=== PATIENT | female | born 1945 | race Caucasian/White ===

== ENCOUNTER 2019-01-13 09:57 | Inpatient (IN) | payer OTHER, MEDICARE ==
[~2019-01-13] VITALS: Ht 167.6 cm; Wt 78.5 kg
[2019-01-13 10:09] VITALS: BP 118/59
[2019-01-13 10:25] LABS: HEMOGLOBIN 13.2 gm/dL (12.0-15.0); MCHC 34.7 g/dL (28.0-37.0); MCV 92.3 fL (80.0-100.0); RBC 4.12 mil/uL (4.20-5.00); RDW 13.2 % (10.5-14.5); WBC 9.2 thou/uL (4.0-11.0)
[2019-01-13 10:31] LABS: ANION GAP 7 mmol/L (7-16); BUN 12 mg/dL (7-18); CALCIUM 9.2 mg/dL (8.5-10.1); CHLORIDE 101 mmol/L (98-107); CO2 28 mmol/L (21-32); GLUCOSE 115 mg/dL (74-106); POTASSIUM 3.3 mmol/L (3.5-5.1); SODIUM 136 mmol/L (136-145)
[2019-01-13 10:35] LABS: INR 1.1; PROTIME 11.7 Seconds (9.3-11.4)
[2019-01-13 10:40] LABS: ALBUMIN 3.6 g/dL (3.4-5.0); SGOT 14 U/L (15-37); SGPT 14 U/L (30-65); TOTAL BILIRUBIN 1.5 mg/dL (<0.1-1.0); TOTAL PROTEIN 7.2 g/dL (6.4-8.2); TROPONIN-I <0.06 ng/mL (<0.06)
[2019-01-13 12:49] LABS: URINE BILIRUBIN NEGATIVE (Negative); URINE BLOOD TRACE (Negative); URINE CLARITY CLEAR; URINE COLOR YELLOW; URINE GLUCOSE-RANDOM* NEGATIVE (Negative); URINE KETONES NEGATIVE (Negative); URINE NITRITE-REFLEX NEGATIVE (Negative); URINE PROTEIN (DIPSTICK) NEGATIVE (Negative); URINE SPECIFIC GRAVITY <= 1.005 (1.005-1.035); URINE UROBILINOGEN 0.2 E.U./dl (0.2-1.0)
[2019-01-13 12:50] LABS: URINE LEUKOCYTES-REFLEX 1+ (Negative)
[2019-01-13 13:02] LABS: BACTERIA-REFLEX 1-9 Few /HPF (None Seen); CASTS None Seen /LPF (None Seen); SQUAMOUS 0-3 Few /LPF (0-3); URINE RBC None Seen /HPF (0-2); URINE WBC-REFLEX 0-5 Rare /HPF (0-5)
[2019-01-13 13:03] LABS: CRYSTALS None Seen /LPF (None Seen)
[2019-01-13 13:07] VITALS: BP 114/67
[2019-01-13] MEDS ORDERED: OCUVITE TABLET1 EAC1 PO (13:18)
[2019-01-13] MEDS ORDERED: VITAMIN D PO (13:18)
[2019-01-13 14:14] VITALS: BP 112/57
[2019-01-13 14:17] VITALS: BP 126/72
[2019-01-13 15:06] LABS: CALCIUM 8.9 mg/dL (8.5-10.1); CREATININE 0.8 mg/dL (0.6-1.0); POTASSIUM 3.5 mmol/L (3.5-5.1)
--- NOTE | 2019-01-13 15:45 | 2DMMODE ---
[facility] [address] [place] [address] 2 D/M-MODE ECHOCARDIOGRAM Name: ARLET HASSAN Room #: 203-P ADM IN .R.#: [id number] Admission: 01/13/19 Attend Phys: Tatiana Betancur Discharge: Date of : 43 Date of Service: 01/13/19 1545 Report #: [id number] THIS REPORT FOR: //name// APPROVED REPORT Study performed: 01/13/2019 15:01:07 EXAM: Comprehensive 2D, Doppler, and color-flow Echocardiogram Patient Location: Echo lab Room #: 203 Status: routine BSA: 1.88 HR: 102 bpm BP: 126/72 mmHg Rhythm: Atrial Fibrillation Other Information Study Quality: Adequate Indications Atrial Fibrillation 2D Dimensions RVDd: 27.55 mm IVSd: 12.43 (7-11mm) LVOT Diam: 21.16 (18-24mm) LVDd: 42.77 mm PWd: 9.66 (7-11mm) Ascending Ao: 32.33 (22-36mm) LVDs: 28.31 (25-40mm) Aortic Root: 35.07 mm Volumes Left Atrial Volume (Systole) Single Plane 4CH: 58.51 mL Single Plane 2CH: 66.94 mL LA ESV Index: 36.00 mL/m2 Aortic Valve AoV Peak Herson.: 1.22 m/s AO Peak Gr.: 5.99 mmHg LVOT Max P.97 mmHg LVOT Max V: 0.98 m/s BEN Vmax: 2.85 cm2 Mitral Valve MV Decel. Time: 132.39 ms MV E Max Herson.: 0.95 m/s [facility] [address] [place] [address] 2 D/M-MODE ECHOCARDIOGRAM Name: ARLET HASSAN Room #: 203-P [facility] IN [facility]#: [id number] Admission: 01/13/19 Attend Phys: Tatiana Betancur Discharge: Date of : 43 Date of Service: 01/13/19 1545 Report #: [id number] Pulmonary Valve PV Peak Herson.: 0.79 m/s PV Peak Gr.: 2.50 mmHg Tricuspid Valve TR Peak Herson.: 2.38 m/s RAP Estimate: 10.00 mmHg TR Peak Gr.: 23.17 mmHg PA Pressure: 33.00 mmHg Left Ventricle The left ventricle is normal size. There is normal LV segmental wall motion. Mild basal septal hypertrophy is present. Left ventricular systolic function is normal. LVEF is 55-60%. This study is not technically sufficient to allow evaluation of the LV diastolic function due to atrial fibrillation. Right Ventricle The right ventricle is normal size. The right ventricular systolic function is normal. Atria Left atrium is mildly dilated. The right atrium size is normal. Aortic Valve The aortic valve is normal in structure. No aortic regurgitation is present. There is no aortic valvular stenosis. Mitral Valve Mild mitral annular calcification. Mild to moderate mitral regurgitation. No evidence of mitral valve stenosis. Tricuspid Valve The tricuspid valve is normal in structure. Moderate tricuspid regurgitation. Estimated PAP is 35mmHg. Pulmonic Valve Pulmonic valve is not well visualized. Trace pulmonic regurgitation. Great Vessels The aortic root is normal in size. The ascending aorta is normal in size. IVC is dilated and collapses <50% with inspiration. Pericardium There is no pericardial effusion. [facility] [place] [address] 2 D/M-MODE ECHOCARDIOGRAM Name: ARLET HASSAN Room #: 203-P ADM IN M.R.#: [id number] Admission: 01/13/19 Attend Phys: Tatiana Betancur Discharge: Date of : 43 Date of Service: 01/13/19 1545 Report #: [id number] <Conclusion> Left ventricular systolic function is normal. There is normal LV segmental wall motion. LVEF is 55-60%. Left atrium is mildly dilated. The aortic valve is normal in structure. No aortic regurgitation or stenosis Mild mitral annular calcification. Mild mitral regurgitation. Moderate tricuspid regurgitation. Estimated pulmonary artery pressure of 35mmHg. There is no pericardial effusion. <ELECTRONICALLY SIGNED> By: Eleuterio Padilla MD, [facility] 01/13/19 1545 1545 1545 Eleuterio Padilla MD, FAC /INF
--- NOTE | 2019-01-13 17:14 | EKG ---
[address] [address] ELECTROCARDIOGRAM REPORT Name: ARLET HASSAN Room #: 203-P ADM IN M.R.#: [id number] Admission: 01/13/19 Attend Phys: Tatiana Betancur MD Discharge: Date of : 43 Report #: [id number] THIS REPORT FOR: //name// [facility] ED Test Date: 2019-01-13 Test Time: 10:06:30 Pat Name: ARLET HASSAN Department: Room: 203 Gender: F Sales Host: Lorene FAJARDO : 1945 Requested By: Gabby Brennan Order Number: [id number] MD: Sang Patel Measurements Intervals [facility] Rate: 152 P: MD: QRS: 40 QRSD: 98 T: 26 QT: 305 QTc: 485 Interpretive Statements Atrial fibrillation with rapid V-rate Abnormal R-wave progression, early transition Compared to ECG 08/08/2004 03:02:14 Sinus rhythm no longer present Incomplete right bundle-branch block no longer present Electronically Signed On 01-13-2019 17:14:31 CLUB ATTENDANT by Sang Patel [email or web address] <ELECTRONICALLY SIGNED> By: Sang Patel MD 01/13/19 1714 1006 1006 Sang Patel MD /EPI
--- NOTE | 2019-01-13 19:49 | NUR ---
VSS-AFEBRILE. LUNGS CLEAR-ROOM AIR. C/O SHOOTING CHEST DISCOMFORT ON LEFT SIDE OF CHEST. DECLINES NEED FOR PAIN MEDICATION. VERY MILD SOA WITH EXERTION. REMAINS IN AFIB WITH A CONTROLLED RATE. LEFT FOOT WOUNDS CLEANSED WITH BETADINE AND COVERED WITH OPTIFOAM. FALL AGREEMENT AND MEDICARE FORM SIGNED. CALLS APPROPRIATELY FOR STANDBY ASSIST TO USE RESTROOM.
[2019-01-13 20:43] VITALS: BP 109/55
[2019-01-14 00:43] VITALS: BP 116/55
[2019-01-14 04:02] LABS: CALCIUM 8.9 mg/dL (8.5-10.1); CREATININE 1.1 mg/dL (0.6-1.0); POTASSIUM 3.9 mmol/L (3.5-5.1)
[2019-01-14 04:15] VITALS: BP 103/53
--- NOTE | 2019-01-14 05:17 | NUR ---
ASSUMED PT CARE AT 1900 WITH BEDSIDE REPORT COMPLETED AND FAMILY AT BEDSIDE. PT IS ALERT AND ORIENTED WITH NO SIGN OF DISTRESS NOTED. SCHEDULED MEDS ADMINISTERED TO PT. PT WAS ADMITTED WITH AFIB RVR AND PLACED ON CARDIZIEM DRIP. PT IS CONVERTED BACK TO NORMAL SINUS RYMTHM. PT IS STABLE. NO SIGN OD DISTRESS NOTED. PT IS TAKEN TO CT SCAN FOR A CTA. PT IS STABLE THROUGH OUT THE NIGHT, VITAL SIGNS STABLE, DENIES ANY CHEST PAIN. PT CONTINUES TO BE NORMAL SINUS RYMTHM THROUGH OUT THE NIGHT. DENIES ANY FURTHER NEEDS AT THIS TIME.
[2019-01-14 08:30] VITALS: BP 124/52
--- NOTE | 2019-01-14 09:39 | EKG ---
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 : 1945 Requested By: Eleuterio Padilla Order Number: [id number] MD: Eleuterio Padilla Measurements Intervals [place] Rate: 69 P: 6 [place]: 135 QRS: 23 QRSD: 105 T: 51 QT: 429 QTc: 460 Interpretive Statements Sinus rhythm Normal tracing Compared to ECG 01/13/2019 10:06:30 Sinus rhythm has replaced atrial fibrillation Electronically Signed On 01-14-2019 9:39:30 [employer] by Eleuterio Padilla [email or web address] <ELECTRONICALLY SIGNED> By: Eleuterio Padilla MD, [facility] 01/14/19 0939 D: 02/700 0 Eleuterio Padilla MD, FACC /EPI
[2019-01-14 11:40] VITALS: BP 122/64
--- NOTE | 2019-01-14 12:11 | NUR ---
Met with patient and spouse at bedside. Patient and spouse reside in independent mutli level home but all needs on one level. Patient with no assistive device and cont to drive. 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 Discussed possible coumadin and lab draws and patient plans outpatient management. She reports she was going to [facility] but she did not see her PCP often as she was not ill. She graduated into medicare and their policy they take no new mediare patients. They encouraged her to call Dr Barclay out of [facility]. Spouse reports they plan to follow with Dr Barclay but no established at this time. [facility]
[2019-01-14] MEDS ORDERED: COUMADIN 5 MG TA5 M1 PO (12:18)
[2019-01-14] MEDS ORDERED: CARDIZEM CD240 MG PO (12:20)
[2019-01-14 13:26] VITALS: BP 122/64
--- NOTE | 2019-01-14 15:15 | NUR ---
WOUND CONSULT: PT. WAS SEEN TODAY BY DR. CAMPOS AND MYSELF. PT. HAS CHRONIC VENOUS STATIS ULCERS TO HER LEFT LATERAL ANKLE. THERE ARE NO NOTED SIGNS OR SYMPTOMS OF INFECTION AT THIS TIME. SINCE PT. WILL BE DISCHARGING TODAY PT. WAS INSTRUCTED ON WOUND CARE AND WILL FOLLOW UP IN THE WOUND CLINIC ON A OUTPATIENT BASIS. RECOMMENDATIONS: [employer], BORDERED FOAM, M/W/F AND PRN PT. AND STAFF NURSE WERE INSTRUCTED ON PLAN OF CARE.
== END 2019-01-14 13:54 | disposition home or self-care (01) | DRG 592 ==
LOC: ER 09:57 → 2N 12:42 → EROBS 12:42 → 2N 14:02 → ENTRNSPT 01-14 13:39 → EDTRNSPTSTS 01-14 13:40 → 2N 01-14 13:54
PROVIDERS: Internal Medicine; Physician Assistant; ADMIT Internal Medicine
DX: L97.529 Non-pressure chronic ulcer of other part of left foot with unspecified severity (principal); I50.31 Acute diastolic (congestive) heart failure; L03.90 Cellulitis, unspecified; J98.11 Atelectasis; D68.59 Other primary thrombophilia; I48.91 Unspecified atrial fibrillation; H35.30 Unspecified macular degeneration; Z82.49 Family history of ischemic heart disease and other diseases of the circulatory system; Z90.89 Acquired absence of other organs
CPT/HCPCS: 10081

== ENCOUNTER → 2019-01-26 | Outpatient (CLI) | payer OTHER, MEDICARE ==
[~2019-01-26] MED LIST: CARDIZEM CD240 MG PO; COUMADIN 5 MG TA5 M1 PO; OCUVITE TABLET1 EAC1 PO; VITAMIN D PO
== END ==
LOC: HYPER 06:50
DX: L97.322 Non-pressure chronic ulcer of left ankle with fat layer exposed (principal); I87.2 Venous insufficiency (chronic) (peripheral); I48.1 Persistent atrial fibrillation; Z79.01 Long term (current) use of anticoagulants; Z98.49 Cataract extraction status, unspecified eye

== ENCOUNTER → 2019-02-09 | Outpatient (CLI) | payer OTHER, MEDICARE | LOC: HYPER 06:45 | DX: L97.322 Non-pressure chronic ulcer of left ankle with fat layer exposed (principal); L84 Corns and callosities; I87.2 Venous insufficiency (chronic) (peripheral); I48.1 Persistent atrial fibrillation; Z79.01 Long term (current) use of anticoagulants ==

== ENCOUNTER → 2019-03-04 | Outpatient (CLI) | payer OTHER, MEDICARE | LOC: HYPER 06:47 | DX: L97.322 Non-pressure chronic ulcer of left ankle with fat layer exposed (principal); S00.32XA Blister (nonthermal) of nose, initial encounter; S80.12XA Contusion of left lower leg, initial encounter; I87.2 Venous insufficiency (chronic) (peripheral); I48.1 Persistent atrial fibrillation; Z79.01 Long term (current) use of anticoagulants; X58.XXXA Exposure to other specified factors, initial encounter; Y93.89 Activity, other specified; Y92.89 Other specified places as the place of occurrence of the external cause; Y99.8 Other external cause status ==

== ENCOUNTER → 2019-03-18 | Outpatient (CLI) | payer OTHER, MEDICARE | LOC: HYPER 06:58 | DX: L97.322 Non-pressure chronic ulcer of left ankle with fat layer exposed (principal); S00.3 Superficial injury of nose; S80.12XD Contusion of left lower leg, subsequent encounter; I87.2 Venous insufficiency (chronic) (peripheral); I48.1 Persistent atrial fibrillation; Z79.01 Long term (current) use of anticoagulants; X58.XXXD Exposure to other specified factors, subsequent encounter ==

== ENCOUNTER → 2019-04-02 | Outpatient (CLI) | payer OTHER, MEDICARE | LOC: HYPER 06:57 | DX: L97.322 Non-pressure chronic ulcer of left ankle with fat layer exposed (principal); I87.2 Venous insufficiency (chronic) (peripheral); I48.1 Persistent atrial fibrillation; Z79.01 Long term (current) use of anticoagulants ==

== ENCOUNTER → 2019-04-20 | Outpatient (CLI) | payer OTHER, MEDICARE | LOC: HYPER 06:35 | DX: L97.322 Non-pressure chronic ulcer of left ankle with fat layer exposed (principal); S00.3 Superficial injury of nose; I87.2 Venous insufficiency (chronic) (peripheral); L84 Corns and callosities; I48.1 Persistent atrial fibrillation; Z79.01 Long term (current) use of anticoagulants; X58.XXXD Exposure to other specified factors, subsequent encounter ==

== ENCOUNTER → 2019-04-29 | Outpatient (CLI) | payer OTHER, MEDICARE | LOC: HYPER 06:34 | DX: L97.322 Non-pressure chronic ulcer of left ankle with fat layer exposed (principal); L84 Corns and callosities; I87.2 Venous insufficiency (chronic) (peripheral); I48.1 Persistent atrial fibrillation; Z79.01 Long term (current) use of anticoagulants ==

== ENCOUNTER → 2019-05-18 | Outpatient (CLI) | payer OTHER, MEDICARE | LOC: HYPER 07:05 | DX: L97.322 Non-pressure chronic ulcer of left ankle with fat layer exposed (principal); S00.3 Superficial injury of nose; S80.12XD Contusion of left lower leg, subsequent encounter; I87.2 Venous insufficiency (chronic) (peripheral); I48.1 Persistent atrial fibrillation; L84 Corns and callosities; Z79.01 Long term (current) use of anticoagulants; X58.XXXD Exposure to other specified factors, subsequent encounter ==

== ENCOUNTER → 2019-06-29 | Outpatient (CLI) | payer OTHER, MEDICARE | LOC: HYPER 07:06 | DX: L97.322 Non-pressure chronic ulcer of left ankle with fat layer exposed (principal); S00.3 Superficial injury of nose; I48.1 Persistent atrial fibrillation; I87.2 Venous insufficiency (chronic) (peripheral); L84 Corns and callosities; I48.91 Unspecified atrial fibrillation; Z79.01 Long term (current) use of anticoagulants; X58.XXXD Exposure to other specified factors, subsequent encounter ==

== ENCOUNTER → 2019-07-13 | Outpatient (CLI) | payer OTHER, MEDICARE | LOC: HYPER 06:53 | DX: L97.322 Non-pressure chronic ulcer of left ankle with fat layer exposed (principal); S00.3 Superficial injury of nose; I87.2 Venous insufficiency (chronic) (peripheral); I48.1 Persistent atrial fibrillation; L84 Corns and callosities; Z79.01 Long term (current) use of anticoagulants; X58.XXXD Exposure to other specified factors, subsequent encounter ==

== ENCOUNTER → 2019-07-23 | Outpatient (CLI) | payer OTHER, MEDICARE | LOC: HYPER 06:50 | DX: L97.322 Non-pressure chronic ulcer of left ankle with fat layer exposed (principal); S00.3 Superficial injury of nose; I87.2 Venous insufficiency (chronic) (peripheral); I48.1 Persistent atrial fibrillation; Z79.01 Long term (current) use of anticoagulants; X58.XXXD Exposure to other specified factors, subsequent encounter ==

== ENCOUNTER → 2019-08-11 | Outpatient (CLI) | payer OTHER, MEDICARE | LOC: HYPER 08-06 16:30 | DX: L97.322 Non-pressure chronic ulcer of left ankle with fat layer exposed (principal); S00.3 Superficial injury of nose; S80.12XD Contusion of left lower leg, subsequent encounter; I87.2 Venous insufficiency (chronic) (peripheral); I48.1 Persistent atrial fibrillation; L84 Corns and callosities; Z79.01 Long term (current) use of anticoagulants; X58.XXXD Exposure to other specified factors, subsequent encounter ==

== ENCOUNTER → 2019-08-27 | Outpatient (CLI) | payer OTHER, MEDICARE | LOC: HYPER 07:18 | DX: L97.322 Non-pressure chronic ulcer of left ankle with fat layer exposed (principal); S00.3 Superficial injury of nose; I87.2 Venous insufficiency (chronic) (peripheral); L84 Corns and callosities; I48.1 Persistent atrial fibrillation; Z79.01 Long term (current) use of anticoagulants; X58.XXXD Exposure to other specified factors, subsequent encounter ==

== ENCOUNTER → 2019-09-17 | Outpatient (CLI) | payer OTHER, MEDICARE | LOC: HYPER 09:00 | DX: L97.322 Non-pressure chronic ulcer of left ankle with fat layer exposed (principal); S80.12XD Contusion of left lower leg, subsequent encounter; S81.802A Unspecified open wound, left lower leg, initial encounter; I87.2 Venous insufficiency (chronic) (peripheral); I48.19 Other persistent atrial fibrillation; Z79.01 Long term (current) use of anticoagulants; X58.XXXA Exposure to other specified factors, initial encounter; Y93.89 Activity, other specified; Y92.89 Other specified places as the place of occurrence of the external cause; Y99.8 Other external cause status ==

== ENCOUNTER → 2019-10-01 | Outpatient (CLI) | payer OTHER, MEDICARE | LOC: HYPER 03:51 | DX: L97.322 Non-pressure chronic ulcer of left ankle with fat layer exposed (principal); S81.801D Unspecified open wound, right lower leg, subsequent encounter; I87.2 Venous insufficiency (chronic) (peripheral); I48.19 Other persistent atrial fibrillation; Z79.01 Long term (current) use of anticoagulants; X58.XXXD Exposure to other specified factors, subsequent encounter ==

== ENCOUNTER → 2019-10-06 | Outpatient (CLI) | payer OTHER, MEDICARE | LOC: HYPER 07:19 | DX: L97.322 Non-pressure chronic ulcer of left ankle with fat layer exposed (principal); S80.12XD Contusion of left lower leg, subsequent encounter; I87.2 Venous insufficiency (chronic) (peripheral); I48.91 Unspecified atrial fibrillation; L84 Corns and callosities; Z79.01 Long term (current) use of anticoagulants; X58.XXXD Exposure to other specified factors, subsequent encounter ==

== ENCOUNTER → 2019-10-22 | Outpatient (CLI) | payer OTHER, MEDICARE | LOC: HYPER 07:41 | DX: L97.322 Non-pressure chronic ulcer of left ankle with fat layer exposed (principal); I87.2 Venous insufficiency (chronic) (peripheral); L84 Corns and callosities; I48.11 Longstanding persistent atrial fibrillation; Z79.01 Long term (current) use of anticoagulants ==

== ENCOUNTER → 2019-11-05 | Outpatient (CLI) | payer OTHER, MEDICARE | LOC: HYPER 08:48 | DX: L97.322 Non-pressure chronic ulcer of left ankle with fat layer exposed (principal); I87.2 Venous insufficiency (chronic) (peripheral); I48.91 Unspecified atrial fibrillation; L84 Corns and callosities; Z79.01 Long term (current) use of anticoagulants ==

== ENCOUNTER → 2019-11-19 | Outpatient (CLI) | payer OTHER, MEDICARE | LOC: HYPER 09:13 | DX: L97.322 Non-pressure chronic ulcer of left ankle with fat layer exposed (principal); I87.2 Venous insufficiency (chronic) (peripheral); I48.19 Other persistent atrial fibrillation; Z79.01 Long term (current) use of anticoagulants ==

== ENCOUNTER → 2019-12-10 | Outpatient (CLI) | payer OTHER, MEDICARE | LOC: SJCVC 08:33 | DX: Z51.81 Encounter for therapeutic drug level monitoring (principal); I48.19 Other persistent atrial fibrillation; I50.32 Chronic diastolic (congestive) heart failure; E78.5 Hyperlipidemia, unspecified; Z79.01 Long term (current) use of anticoagulants ==

== ENCOUNTER → 2019-12-24 | Outpatient (CLI) | payer OTHER, MEDICARE | LOC: SJCVC 08:46 | DX: Z51.81 Encounter for therapeutic drug level monitoring (principal); I48.19 Other persistent atrial fibrillation; I50.32 Chronic diastolic (congestive) heart failure; E78.5 Hyperlipidemia, unspecified; Z79.01 Long term (current) use of anticoagulants ==

== ENCOUNTER → 2019-12-24 | Outpatient (CLI) | payer OTHER, MEDICARE | LOC: HYPER 08:51 | DX: L97.322 Non-pressure chronic ulcer of left ankle with fat layer exposed (principal); L97.821 Non-pressure chronic ulcer of other part of left lower leg limited to breakdown of skin; I87.2 Venous insufficiency (chronic) (peripheral); I48.19 Other persistent atrial fibrillation; R60.0 Localized edema; Z79.01 Long term (current) use of anticoagulants ==

== ENCOUNTER → 2019-12-31 | Outpatient (CLI) | payer OTHER, MEDICARE | LOC: HYPER 09:08 | DX: L97.322 Non-pressure chronic ulcer of left ankle with fat layer exposed (principal); S81.802D Unspecified open wound, left lower leg, subsequent encounter; I87.2 Venous insufficiency (chronic) (peripheral); I48.19 Other persistent atrial fibrillation; Z79.01 Long term (current) use of anticoagulants; X58.XXXD Exposure to other specified factors, subsequent encounter ==

== ENCOUNTER → 2020-01-07 | Outpatient (CLI) | payer OTHER, MEDICARE | LOC: SJCVC 08:22 | DX: Z51.81 Encounter for therapeutic drug level monitoring (principal); I48.19 Other persistent atrial fibrillation; I50.32 Chronic diastolic (congestive) heart failure; E78.5 Hyperlipidemia, unspecified; Z79.01 Long term (current) use of anticoagulants ==

== ENCOUNTER → 2020-01-07 | Outpatient (CLI) | payer OTHER, MEDICARE | LOC: HYPER 08:50 | DX: L97.322 Non-pressure chronic ulcer of left ankle with fat layer exposed (principal); S81.802D Unspecified open wound, left lower leg, subsequent encounter; I87.2 Venous insufficiency (chronic) (peripheral); L84 Corns and callosities; I48.19 Other persistent atrial fibrillation; Z79.01 Long term (current) use of anticoagulants; X58.XXXD Exposure to other specified factors, subsequent encounter ==

== ENCOUNTER → 2020-01-14 | Outpatient (CLI) | payer OTHER, MEDICARE | LOC: HYPER 09:07 | DX: L97.322 Non-pressure chronic ulcer of left ankle with fat layer exposed (principal); I87.2 Venous insufficiency (chronic) (peripheral); L84 Corns and callosities; I48.19 Other persistent atrial fibrillation; Z79.01 Long term (current) use of anticoagulants ==

== ENCOUNTER → 2020-01-19 | Outpatient (CLI) | payer OTHER, MEDICARE | LOC: SJCVC 11:15 | DX: R94.31 Abnormal electrocardiogram [ECG] [EKG] (principal); I48.19 Other persistent atrial fibrillation; E78.5 Hyperlipidemia, unspecified; I73.9 Peripheral vascular disease, unspecified; Z90.49 Acquired absence of other specified parts of digestive tract; Z79.01 Long term (current) use of anticoagulants; Z79.899 Other long term (current) drug therapy ==

== ENCOUNTER → 2020-01-28 | Outpatient (CLI) | payer OTHER, MEDICARE | LOC: SJCVC 11:39 | DX: Z51.81 Encounter for therapeutic drug level monitoring (principal); I48.19 Other persistent atrial fibrillation; I50.32 Chronic diastolic (congestive) heart failure; E78.5 Hyperlipidemia, unspecified; Z79.01 Long term (current) use of anticoagulants ==

== ENCOUNTER → 2020-01-28 | Outpatient (CLI) | payer OTHER, MEDICARE | LOC: HYPER 09:12 | DX: L97.322 Non-pressure chronic ulcer of left ankle with fat layer exposed (principal); I87.2 Venous insufficiency (chronic) (peripheral); I48.91 Unspecified atrial fibrillation; L84 Corns and callosities; Z79.01 Long term (current) use of anticoagulants ==

== ENCOUNTER → 2020-02-03 | Outpatient (CLI) | payer OTHER, MEDICARE | LOC: SJCVCIMAG 08:40 | DX: I08.1 Rheumatic disorders of both mitral and tricuspid valves (principal); I48.91 Unspecified atrial fibrillation; L97.329 Non-pressure chronic ulcer of left ankle with unspecified severity; I50.32 Chronic diastolic (congestive) heart failure; I73.9 Peripheral vascular disease, unspecified ==

== ENCOUNTER → 2020-02-11 | Outpatient (CLI) | payer OTHER, MEDICARE | LOC: SJCVC 08:11 | DX: Z51.81 Encounter for therapeutic drug level monitoring (principal); I48.19 Other persistent atrial fibrillation; I50.32 Chronic diastolic (congestive) heart failure; E78.5 Hyperlipidemia, unspecified; Z79.01 Long term (current) use of anticoagulants ==

== ENCOUNTER → 2020-02-11 | Outpatient (CLI) | payer OTHER, MEDICARE | LOC: HYPER 09:18 | DX: L97.322 Non-pressure chronic ulcer of left ankle with fat layer exposed (principal); I87.2 Venous insufficiency (chronic) (peripheral); I48.19 Other persistent atrial fibrillation; L84 Corns and callosities; Z79.01 Long term (current) use of anticoagulants ==

== ENCOUNTER → 2020-03-10 | Outpatient (CLI) | payer OTHER, MEDICARE | LOC: SJCVC 08:47 | DX: I48.91 Unspecified atrial fibrillation (principal) ==

== ENCOUNTER → 2020-04-07 | Outpatient (CLI) | payer OTHER, MEDICARE | LOC: SJCVC 08:18 | DX: Z51.81 Encounter for therapeutic drug level monitoring (principal); I48.19 Other persistent atrial fibrillation; I50.32 Chronic diastolic (congestive) heart failure; E78.5 Hyperlipidemia, unspecified; Z79.01 Long term (current) use of anticoagulants ==

== ENCOUNTER → 2020-05-05 | Outpatient (CLI) | payer OTHER, MEDICARE | LOC: SJCVC 08:31 | DX: Z51.81 Encounter for therapeutic drug level monitoring (principal); Z79.01 Long term (current) use of anticoagulants ==

== ENCOUNTER → 2020-05-19 | Outpatient (CLI) | payer OTHER, MEDICARE | LOC: SJCVC 08:35 | PROVIDERS: ATTEND Internal Medicine | DX: Z51.81 Encounter for therapeutic drug level monitoring (principal); I48.19 Other persistent atrial fibrillation; I50.30 Unspecified diastolic (congestive) heart failure; I73.9 Peripheral vascular disease, unspecified; Z79.01 Long term (current) use of anticoagulants; Z79.899 Other long term (current) drug therapy ==

== ENCOUNTER → 2020-06-16 | Outpatient (CLI) | payer OTHER, MEDICARE | LOC: SJCVC 08:21 | PROVIDERS: ATTEND Internal Medicine | DX: Z51.81 Encounter for therapeutic drug level monitoring (principal); I48.19 Other persistent atrial fibrillation; I73.9 Peripheral vascular disease, unspecified; I50.32 Chronic diastolic (congestive) heart failure; E78.5 Hyperlipidemia, unspecified; Z79.01 Long term (current) use of anticoagulants ==

== ENCOUNTER → 2020-07-13 | Outpatient (CLI) | payer OTHER, MEDICARE | LOC: SJCVC 08:39 | PROVIDERS: ATTEND Internal Medicine | DX: Z51.81 Encounter for therapeutic drug level monitoring (principal); I48.21 Permanent atrial fibrillation; I50.32 Chronic diastolic (congestive) heart failure; I73.9 Peripheral vascular disease, unspecified; E78.5 Hyperlipidemia, unspecified; Z79.01 Long term (current) use of anticoagulants; Z79.899 Other long term (current) drug therapy ==

== ENCOUNTER → 2020-07-21 | Outpatient (CLI) | payer OTHER, MEDICARE | LOC: SJCVC 10:36 | PROVIDERS: ATTEND Internal Medicine | DX: R94.31 Abnormal electrocardiogram [ECG] [EKG] (principal); I45.10 Unspecified right bundle-branch block; I48.19 Other persistent atrial fibrillation; I50.32 Chronic diastolic (congestive) heart failure; E78.5 Hyperlipidemia, unspecified; I73.9 Peripheral vascular disease, unspecified; Z79.01 Long term (current) use of anticoagulants; Z79.899 Other long term (current) drug therapy ==

== ENCOUNTER → 2021-01-26 | Outpatient (CLI) | payer OTHER, MEDICARE | LOC: SJCVC 10:41 | PROVIDERS: ATTEND Internal Medicine | DX: I48.19 Other persistent atrial fibrillation (principal); E78.5 Hyperlipidemia, unspecified; I50.32 Chronic diastolic (congestive) heart failure; Z79.01 Long term (current) use of anticoagulants; Z90.49 Acquired absence of other specified parts of digestive tract; Z98.890 Other specified postprocedural states; Z82.49 Family history of ischemic heart disease and other diseases of the circulatory system; Z87.891 Personal history of nicotine dependence ==

== ENCOUNTER → 2021-02-27 | Outpatient (CLI) | payer OTHER, MEDICARE | LOC: SJCVCIMAG 08:55 | PROVIDERS: ATTEND Internal Medicine | DX: R94.31 Abnormal electrocardiogram [ECG] [EKG] (principal); I08.1 Rheumatic disorders of both mitral and tricuspid valves; I48.19 Other persistent atrial fibrillation; I45.10 Unspecified right bundle-branch block; I50.32 Chronic diastolic (congestive) heart failure; E78.5 Hyperlipidemia, unspecified; Z79.01 Long term (current) use of anticoagulants; Z79.899 Other long term (current) drug therapy ==

== ENCOUNTER → 2021-08-31 | Outpatient (CLI) | payer OTHER, MEDICARE | LOC: SJCVC 10:25 | PROVIDERS: ATTEND Internal Medicine | DX: R94.31 Abnormal electrocardiogram [ECG] [EKG] (principal); I45.10 Unspecified right bundle-branch block; I48.91 Unspecified atrial fibrillation; I48.19 Other persistent atrial fibrillation; I50.32 Chronic diastolic (congestive) heart failure; E78.5 Hyperlipidemia, unspecified; Z79.01 Long term (current) use of anticoagulants; Z79.899 Other long term (current) drug therapy ==